=== PATIENT | male | born 1945 | race Caucasian/White ===

== ENCOUNTER 2016-11-08 11:18 | Outpatient (CLI) | payer MEDICARE, OTHER ==
[2016-11-08 13:48] LABS: #Eosinphils 0.1 thou/uL (0.0-0.7); #Lymphocytes 2.1 thou/uL (1.20-3.40); #Monocytes 0.7 thou/uL (0.11-0.59); #Neutrophils 4.8 thou/uL (1.40-6.50); %Basophils 0.6 % (0.0-1.0); %Eosinophils 1.9 % (0.0-10.0); %Lymphocytes 26.5 % (21.0-51.0); %Monocytes 8.9 % (0.0-10.0); %Neutrophils 62.2 % (42.0-75.0); Hemoglobin 14.9 g/dL (14.0-18.0); Mean Corpuscular HGB CONC 32.4 g/dL (32.0-36.0); Mean Corpuscular Hemoglobin 29.8 pg (27.0-31.0); Mean Platelet Volume 6.6 fL (7.4-10.4); Platelet Count 225 thou/uL (130-400); RBC Distribution Width 13.1 % (11.5-14.5); Red Blood Cell (RBC) Count 4.99 mill/uL (4.70-6.10); White Blood Cell (WBC) Count 7.7 thou/uL (4.8-10.8)
[2016-11-08 14:15] LABS: Anion Gap 17 mmol/L (10-20); BUN (Urea Nitrogen) 19 mg/dL (8.4-25.7); Calc. Creatinine Clearance 0 mL/min (70-130); Calcium 9.3 mg/dL (7.8-10.44); Carbon Dioxide 22 mmol/L (23-31); Cardiac Risk 5.9 (Less than 4.5); Chloride 107 mmol/L (98-107); Cholesterol 189 mg/dl (< 200 Desired); Estimated GFR-MDRD 80; Glucose 92 mg/dL (83-110); HDL Cholesterol 32 mg/dL (>60 Neg Risk); LDL Cholesterol, Calculated 108 mg/dL; Potassium 4.9 mmol/L (3.5-5.1); Sodium 141 mmol/L (136-145); Triglycerides 246 mg/dL (Less than 150)
[2016-11-08 14:19] LABS: Bilirubin Negative (Negative); Blood, Urine Trace (Negative); Clarity Clear (Clear); Glucose, Urine (Dipstick) Negative (Negative); Leukocyte Negative (Negative); Nitrite Negative (Negative); Protein, Urine (Dipstick) Negative (Neg-Trace); Urobilinogen 0.2 mg/dL (0.2-1.0)
[2016-11-08 14:42] LABS: Hemoglobin A1c 5.6 % (4.0-6.0)
[2016-11-08 14:57] LABS: Bacteria/HPF Rare-Few HPF (None Seen); RBC/HPF 0-3 HPF (0-3); Squamous Epithelial 0-3 HPF (0-3); WBC/HPF 0-3 HPF (0-3)
[2016-11-09 18:03] LABS: Creatinine, Urine 110.17 mg/dL (63-166); Microalbumin Urine 1.5 mg/dL (0.5-50.0); Microalbumin/Creat Ratio 13.6 mg/g (Less than 30)
== END 2016-11-08 11:19 | disposition home or self-care (01) ==
LOC: NAVSJIPCSP 11:18
PROVIDERS: ATTEND Internal Medicine
DX: Z51.81 Encounter for therapeutic drug level monitoring (principal); Z79.899 Other long term (current) drug therapy
CPT/HCPCS: 36415; 80048; 80061; 81003; 81015; 82043; 83036; 84443; 85025

== ENCOUNTER 2016-11-15 16:10 | Outpatient (CLI) | payer MEDICARE, OTHER ==
--- NOTE | 2016-11-16 07:36 | RAD ---
PA AND LATERAL CHEST: 11/15/16 HISTORY: Pulmonary nodule. COMPARISON: 07/09/16. Mild cardiomegaly. Transvenous pacemaker leads are again noted. The lungs appear clear. No pulmonary mass or nodule identified by plain film. Old right rib fractures again noted. There is also old rig ht clavicle fracture noted. Degenerative spine changes are prominent and stable. IMPRESSION: No acute lung process identified. POS: [facility]
== END 2016-11-15 16:11 | disposition home or self-care (01) ==
LOC: NAV RAD 16:10
PROVIDERS: ATTEND Internal Medicine
DX: R91.1 Solitary pulmonary nodule (principal)
CPT/HCPCS: 71020

== ENCOUNTER 2016-11-17 06:39 | Emergency (ER) | payer MEDICARE, OTHER ==
[2016-11-17 07:02] LABS: Bilirubin Negative (Negative); Blood, Urine Large (Negative); Clarity Clear (Clear); Glucose, Urine (Dipstick) Negative (Negative); Leukocyte Negative (Negative); Nitrite Negative (Negative); Protein, Urine (Dipstick) 30 mg/dL (Neg-Trace); Specific Gravity, Urine 1.027 (1.002-1.036); Urobilinogen 0.2 mg/dL (0.2-1.0)
[2016-11-17] MEDS ORDERED: Ketorolac Tromethamine 30 MG/ML VIAL ONE (07:03)
[2016-11-17] MEDS ORDERED: Metoclopramide HCl 10 MG/2 ML VIAL ONE (07:03)
[2016-11-17] MEDS ORDERED: Sodium Chloride 0.9% 1,000 ML ONE (07:03)
[2016-11-17 07:07] LABS: RBC/HPF 21-50 HPF (0-3)
[2016-11-17 07:08] LABS: Bacteria/HPF Rare-Few HPF (None Seen); Squamous Epithelial None Seen HPF (0-3); WBC/HPF 0-3 HPF (0-3)
--- NOTE | 2016-11-17 08:31 | CT ---
CT ABDOMEN AND PELVIS WITHOUT CONTRAST: Date: 11/17/16 HISTORY: Right flank pain since 0400 hours. History of renal calculi. COMPARISON: CT abdomen and pelvis dated 08/15/14. FINDINGS: There is a partially obstructive calculus distal right ureter approximately 1.0 cm proximal to the u reterovesical junction measuring 2.0 x 2.0 x 3.0 mm (trans x AP x CC). There is moderate right-sided perinephric stranding and periureteral stranding. The calices are blunted. There are puncture calcu li throughout the right renal collecting system. The left renal collecting system is not dilated. No significant left-sided nephroureterolithiasis or hydroureteronephrosis. Noncontrast evaluation of the solid organs of the abdomen demonstrates normal appearance of the sple en. The liver is mildly enlarged. There are dense calculi throughout the gallbladder, which is mildl y distended. There are a few calcifications of the pancreatic tail which could be a sequelae of prio r pancreatitis although a neoplasm cannot be totally excluded. Aortoiliac contour is without aneurysmal dilatation. Moderate diverticular disease of the sigmoid co sandy without active inflammation. The appendix is visualized and is normal. Mild atelectatic changes in the lung bases. Severe degenerative disease at L5-S1 with osteophyte formation. There are also bridging osteophytes at the SI joints. IMPRESSION: 1. Partially obstructive 2 x 2 x 3 mm calculus at distal right ureter, 1.0 cm proximal to the uret erovesical junction, causing moderate right-sided proximal hydroureteronephrosis with perinephric an d periureteral stranding. 2. Cholelithiasis without definite evidence of cholecystitis. 3. Diverticular disease sigmoid colon without active inflammation. 4. Focal collection of calcifications at the pancreatic tail. This could be sequelae of focal prior pancreatitis, although neoplasm cannot be totally excluded. A follow-up CT or MRI pancreatic protoc ol would be recommended in this patient with contrast. This could be done on a nonemergent basis and could be done in 3-6 months as the calcifications themselves do not appear to be significantly issa ged from the comparison exam from 2016. The calcifications, however, are new since 2012. POS: [facility]
== END 2016-11-17 08:32 | disposition home or self-care (01) ==
LOC: NAV ERS 06:39
DX: N13.2 Hydronephrosis with renal and ureteral calculous obstruction (principal); E78.5 Hyperlipidemia, unspecified; I12.9 Hypertensive chronic kidney disease with stage 1 through stage 4 chronic kidney disease, or unspecified chronic kidney disease; N18.9 Chronic kidney disease, unspecified; E78.1 Pure hyperglyceridemia; Z79.899 Other long term (current) drug therapy
CPT/HCPCS: 74176; 81003; 81015; 96361; 96374; 96375; J1885; J2765; J7050

== ENCOUNTER 2017-02-19 14:32 | Emergency (ER) | payer MEDICARE, OTHER ==
[2017-02-19] MEDS ORDERED: Ketorolac Tromethamine 30 MG/ML VIAL ONE (15:14)
[2017-02-19] MEDS ORDERED: Acetaminophen 500 MG TAB ONE (15:15)
[2017-02-19] MEDS ORDERED: Diazepam 10 MG/2 ML SYRINGE ONE (15:15)
[2017-02-19 15:36] LABS: #Basophils 0.1 thou/uL (0.0-0.2); #Eosinphils 0.1 thou/uL (0.0-0.7); #Lymphocytes 1.8 thou/uL (1.20-3.40); #Monocytes 0.7 thou/uL (0.11-0.59); #Neutrophils 5.8 thou/uL (1.40-6.50); %Basophils 0.8 % (0.0-1.0); %Eosinophils 1.7 % (0.0-10.0); %Lymphocytes 20.7 % (21.0-51.0); %Monocytes 8.7 % (0.0-10.0); %Neutrophils 68.1 % (42.0-75.0); Hemoglobin 14.2 g/dL (14.0-18.0); Mean Corpuscular HGB CONC 32.1 g/dL (32.0-36.0); Mean Corpuscular Hemoglobin 30.5 pg (27.0-31.0); Mean Corpuscular Volume 95.1 fl (80.0-94.0); Platelet Count 214 thou/uL (130-400); RBC Distribution Width 12.9 % (11.5-14.5); Red Blood Cell (RBC) Count 4.66 mill/uL (4.70-6.10); White Blood Cell (WBC) Count 8.6 thou/uL (4.8-10.8)
[2017-02-19 15:51] LABS: ALT (SGPT) 32 U/L (8-55); AST (SGOT) 36 U/L (5-34); Alkaline Phosphatase 87 U/L (40-150); Anion Gap 15 mmol/L (10-20); BUN (Urea Nitrogen) 14 mg/dL (8.4-25.7); Bilirubin, Total 0.3 mg/dL (0.2-1.2); Calc. Creatinine Clearance 0 mL/min (70-130); Carbon Dioxide 23 mmol/L (23-31); Chloride 106 mmol/L (98-107); Estimated GFR-MDRD Greater than 90; Glucose 123 mg/dL (83-110); Potassium 4.1 mmol/L (3.5-5.1); Sodium 140 mmol/L (136-145)
[2017-02-19 16:03] LABS: CKMB 7.6 ng/mL (0-6.6); Critical Call CKMBM 0; Troponin I 1.696 ng/mL (< 0.028)
[2017-02-19] MEDS ORDERED: Metoprolol Tartrate 50 MG TAB ONE (16:17)
--- NOTE | 2017-02-19 16:20 | RAD ---
AP AND LATERAL CHEST RADIOGRAPH: Date: 02-19-17 History: Hypertension, dizziness. Comparison: 11-15-16 FINDINGS: Dual-lead left subclavian cardiac pacemaking device is again noted in place. Cardiac silhouette is m agnified by portable technique of the study but stable in size. Pulmonary vasculature is within norm al limits. The lungs appear clear. There are degenerative changes in the spine. IMPRESSION: Stable chest without evidence of an acute cardiopulmonary process. POS: [facility]
--- NOTE | 2017-02-19 16:45 | CT ---
NONCONTRAST CT CERVICAL SPINE: 02/19/2017 HISTORY: Neck spasms. Neck pain. COMPARISON: 09/07/2012 TECHNIQUE: Contiguous axial CT images were obtained through the cervical spine, from the skull base to the leve l of the T1 vertebral body. Sagittal and coronal reformatted images were provided. FINDINGS: No fracture or subluxation is seen. Multilevel degenerative changes are again seen in the cervical spine with narrowing of the intervertebral disk spaces at multiple levels. There is moderate to sev ere bilateral neural foraminal narrowing at the C3-C4 level with severe bilateral neural foraminal n arrowing at the C5-C6 level, similar to the prior study and related to bony encroachment. Preverteb ral soft tissues are within normal limits. There has been no interval change compared to the prior exam. IMPRESSION: Stable CT scan of the cervical spine with multilevel degenerative changes, as described above. No f racture or subluxation is seen. POS: [facility]
[2017-02-19] MEDS ORDERED: Enoxaparin Sodium 80 MG/0.8 ML SYRINGE ONE (16:56)
[2017-02-19] MEDS ORDERED: Enoxaparin Sodium 40 MG/0.4 ML SYRINGE ONE (16:56)
== END 2017-02-19 17:21 | disposition short-term general hospital (02) ==
LOC: NAV ERS 14:32
DX: I21.4 Non-ST elevation (NSTEMI) myocardial infarction (principal); M54.2 Cervicalgia; I10 Essential (primary) hypertension; R79.89 Other specified abnormal findings of blood chemistry; I48.91 Unspecified atrial fibrillation; E78.5 Hyperlipidemia, unspecified; Z95.0 Presence of cardiac pacemaker; Z79.899 Other long term (current) drug therapy
CPT/HCPCS: 71020; 72125; 80053; 82553; 84484; 85025; 93005; 96372; 96374; 96375; J1650; J1885; J3360

== ENCOUNTER 2018-09-13 11:25 | Outpatient (CLI) | payer MEDICARE, OTHER ==
--- NOTE | 2018-09-13 11:48 | RAD ---
XR Ribs Lt>=2 View STANDARD History: [Rib pain. Left rib and shoulder pain.] Comparison: Chest radiograph 2017 Findings: Scarring left costophrenic sulcus. There is a dual-lead pacer in in situ. Scarring in the left lower lobe. Right lung is clear. No pneumothorax. No acute osseous abnormality. Impression: Chronic findings. No acute intrathoracic abnormality. No displaced rib fracture.
--- NOTE | 2018-09-13 11:54 | RAD ---
XR Shoulder Lt 3 View STANDARD History: [Left rib and shoulder pain] Comparison: None. Findings: No acute fracture or malalignment. There is subacromial narrowing due to a undersurface tal l osteophyte of the acromion. Better seen on this examination than the rib radiographs as well as appears to be a old left lateral third rib fracture. Impression: 1. Narrowed subacromial space due to undersurface keel osteophyte of the acromion can be a source of patient's pain. 2. Old left lateral third rib fracture.
== END 2018-09-13 11:26 | disposition home or self-care (01) ==
LOC: NAV RAD 11:25
PROVIDERS: ATTEND Nurse Practitioner Adult Health
DX: R07.81 Pleurodynia (principal); M25.512 Pain in left shoulder; M25.712 Osteophyte, left shoulder; Z87.81 Personal history of (healed) traumatic fracture

== ENCOUNTER 2019-06-09 15:35 | Outpatient (CLI) | payer MEDICARE, OTHER ==
[~2019-06-09 15:35] MED LIST: Iopamidol 370 76% 100 ML VIAL ONE
[2019-06-09 16:19] LABS: ALT (SGPT) 28 U/L (8-55); AST (SGOT) 26 U/L (5-34); Albumin 4.5 g/dL (3.4-4.8); Alkaline Phosphatase 95 U/L (40-110); Anion Gap 17 mmol/L (10-20); BUN (Urea Nitrogen) 26 mg/dL (8.4-25.7); Bilirubin, Total 0.4 mg/dL (0.2-1.2); Calc. Creatinine Clearance 0 mL/min (70-130); Calcium 9.7 mg/dL (7.8-10.44); Carbon Dioxide 22 mmol/L (23-31); Chloride 105 mmol/L (98-107); Estimated GFR-MDRD 68; Globulin 3.5 g/dL (2.4-3.5); Glucose 86 mg/dL (83-110); Potassium 4.3 mmol/L (3.5-5.1); Sodium 140 mmol/L (136-145)
--- NOTE | 2019-06-09 17:20 | CT ---
CT Chest W Con History: Pulmonary nodule follow-up Comparison: CT chest October 11, 2018 Findings: Very similar appearance of the left lower lobe pulmonary nodule measuring 7 mm in greatest dimension. No other new suspicious pulmonary nodule is present. No pneumothorax. No effusion. No significant pericardial effusion. Anterior fat-containing diaphragmatic hernia. Prior midline sternotomy. The thoracic spine is without compression deformity. The aortic contour is nonaneurysmal. Multiple cholelithiasis. Spleen is unremarkable. Few calcifications of the pancreatic tail is only minimally increased back to 2015. No mediastinal adenopathy. Multiple old right-sided rib fractures. No acute displaced rib fracture. Impression: Unchanged left lower lobe pulmonary nodule which appears similar to the CT abdomen pelvis CT dating 2015, likely a benign entity. No new suspicious pulmonary nodule or acute intrathoracic abnormality.
== END 2019-06-09 15:36 | disposition home or self-care (01) ==
LOC: NAV RAD 15:35 → NAV CT 15:36
PROVIDERS: ATTEND Internal Medicine
DX: R91.1 Solitary pulmonary nodule (principal)
CPT/HCPCS: 71260; 80053; G0103; Q9967

== ENCOUNTER 2020-04-16 10:47 | Outpatient (CLI) | payer MEDICARE ==
--- NOTE | 2020-04-16 11:18 | RAD ---
XR Knee Rt 4 View STANDARD HISTORY: Right knee pain, osteoarthritis FINDINGS: No fracture or dislocation is identified. Degenerative changes are present, most prominent in the med ial tibiofemoral compartment
--- NOTE | 2020-04-16 11:18 | RAD ---
XR Knee Lt 4 View STANDARD HISTORY: Left knee pain, left osteoarthritis FINDINGS: No fracture or dislocation is identified. Degenerative changes are seen, most prominent in the medial tibiofemoral compartment.
== END 2020-04-16 10:48 | disposition home or self-care (01) ==
LOC: NAV RAD 10:47
PROVIDERS: ATTEND Family Medicine
DX: M17.0 Bilateral primary osteoarthritis of knee (principal)